=== PATIENT | male | born 1975 | race African-American/Black ===

== ENCOUNTER 2024-02-12 09:52 | Outpatient (CLI) | payer OTHER, SELFPAY ==
--- NOTE | ~2024-02-12 | CT_ITS ---
. EXAMINATION: CT abdomen pelvis wo/w con DATE: 02/12/2024 10:42 INDICATION: Gross hematuria. TECHNIQUE: Computed tomography (CT) of the abdomen and pelvis was performed without and with intraven ous contrast using a total of 130 mL Omnipaque-350 intravenous contrast with a double-bolus technique for simultaneous opacification of the renal parenchyma and renal collecting system. Automated exposu re control and iterative reconstruction technique were employed. The dose-length product was 2107.79 mGy-cm. COMPARISON: None FINDINGS: The visualized portions of the lung bases demonstrate minimal atelectasis. No pleural effusion. The h eart size is normal. No pericardial effusion. The liver, gallbladder, spleen, pancreas, adrenal gland s, and left kidney are normal. There is a 12 mm cyst in right kidney. There is no urolithiasis. Dista l right ureter is not well opacified, but is normal. The left ureter is well opacified and is normal. There is an umbilical hernia containing fat. The bladder is normal. The prostate is moderately enlar ged. There are no dilated loops of bowel. The appendix is normal. There are no pathologically enlarge d lymph nodes. There is no free intraperitoneal fluid. There is mild thoracic and lumbar spondylosis. IMPRESSION: 1. No etiology for hematuria. Reviewed, dictated and finalized at location A.
[2024-02-12 10:18] LABS: Estimated Glomerular Filt Rate > 60
== END 2024-02-12 09:53 ==
LOC: MICIMG 09:53
PROVIDERS: PCP Urology; Visit Provider Urology
DX: R31.0 Gross hematuria (principal)
CPT/HCPCS: 74178; Q9967